=== PATIENT | male | born 1995 | race Native Hawaiian/Other Pacific Islander ===

== ENCOUNTER 2016-08-07 18:50 | Emergency (ER) | payer OTHER ==
[~2016-08-07] VITALS: Ht 190.5 cm; Wt 121.1 kg
[2016-08-07 19:31] VITALS: BP 141/75; TEMP 98.2
== END 2016-08-07 19:33 | disposition home or self-care (01) ==
LOC: ED 18:50
DX: Z48.02 Encounter for removal of sutures (principal)